=== PATIENT | male | born 1985 | race Two or more races ===

== ENCOUNTER 2018-09-17 00:52 | Emergency (ER) | payer OTHER ==
[~2018-09-17] VITALS: Ht 175.3 cm; Wt 88.5 kg
== END 2018-09-17 18:32 | disposition home or self-care (01) ==
LOC: ER 00:52
DX: S01.84XA Puncture wound with foreign body of other part of head, initial encounter (principal); W50.0XXA Accidental hit or strike by another person, initial encounter; Y93.89 Activity, other specified; Y92.488 Other paved roadways as the place of occurrence of the external cause; Y99.8 Other external cause status

== ENCOUNTER → 2025-05-13 | Emergency (ER) | payer OTHER ==
[~2025-05-13] VITALS: Ht 175.3 cm; Wt 86.2 kg
[~2025-05-13] MED LIST: PRILOSEC OTC20 MG PO; TOPROL XL50 M1 PO
== END | disposition left against medical advice (07) ==
LOC: ER 23:21
DX: Z53.21 Procedure and treatment not carried out due to patient leaving prior to being seen by health care provider (principal)